=== PATIENT | male | born 1970 | race Caucasian/White ===

== ENCOUNTER 2023-06-27 07:30 | Observation (INO) ==
[2023-06-27 07:58] LABS: ABS Lymphocytes 0.9 10^3/uL (1.0-4.8); ABS Monocytes 1.4 10^3/uL (0.0-1.1); ABS Neutrophils 7.1 10^3/uL (1.5-7.6); Eosinophil % 0.5 %; Hematocrit 36.6 % (38-53); Lymphocyte % 9.8 %; Mean Corpuscular Hemoglobin 33.6 pg (27-33); Mean Corpuscular Hgb Conc 35.6 g/dL (31-36); Mean Corpuscular Volume 94.4 fL (80-97); Mean Platelet Volume 7.4 fL (7.5-11.2); Platelet Count 294 10^3/uL (150-450); Red Blood Count 3.88 10^6/uL (4.06-5.63); Red Cell Distribution Width 14.5 % (12-17); White Blood Count 9.4 10^3/uL (3.6-10.2)
[2023-06-27 08:03] LABS: INR 1.34 (0.83-1.13)
[2023-06-27 08:15] LABS: Albumin 3.2 g/dL (3.2-5.2); Calcium 7.9 mg/dL (8.6-10.3); Creatinine, Serum 0.64 mg/dL (0.67-1.17); Globulin 3.3 g/dL (2-4); Potassium 2.9 mmol/L (3.5-5.0); Total Bilirubin 0.6 mg/dL (0.2-1.0); Total Protein 6.5 g/dL (6.4-8.9); eGFR CKD-EPI 113.9 (>60)
[2023-06-27 09:51] LABS: High Sensitivity Troponin 1 Hr 13 pg/mL (<20)
[2023-06-27] MEDS ORDERED: Potassium Chlor 20 meq TAB.ER PO ONE (11:12)
[2023-06-27] MEDS ORDERED: Famotidine IV 10 MG/ML 2 ml VIAL (20 mg) IV SLOW PU ONE (12:04)
[2023-06-27] MEDS ORDERED: NS 0.9% 1000 ml BAG 1,000 ML IV ONE (12:04)
[2023-06-27 13:11] LABS: ALT 186 U/L (7-52); Albumin 3.2 g/dL (3.2-5.2); Alkaline Phosphatase 80 U/L (35-149); Blood Urea Nitrogen 8 mg/dL (6-24); CO2 Carbon Dioxide 24 mmol/L (22-32); Calcium 7.9 mg/dL (8.6-10.3); Chloride 92 mmol/L (101-111); Creatinine, Serum 0.66 mg/dL (0.67-1.17); Globulin 3.2 g/dL (2-4); Glucose 103 mg/dL (70-100); Sodium 122 mmol/L (135-145); Total Protein 6.4 g/dL (6.4-8.9); eGFR CKD-EPI 112.9 (>60)
[2023-06-27 14:06] LABS: Anion Gap 6 mmol/L (2-16)
[2023-06-27] MEDS ORDERED: Iohexol 350 (CONTRAST) 500 ML MDV IV ONE (16:53)
[2023-06-27] MEDS ORDERED: Thiamine 100 MG/ML 2 ml VIAL (200 mg) IM ONE (17:20)
[2023-06-27 18:01] LABS: INR 1.39 (0.83-1.13)
[2023-06-27 18:12] LABS: C Reactive Protein 160.96 mg/L (<8.01); Calcium 7.9 mg/dL (8.6-10.3); Creatinine, Serum 0.63 mg/dL (0.67-1.17); eGFR CKD-EPI 114.4 (>60)
[2023-06-27 18:13] LABS: Potassium Redraw 2.9 mmol/L (3.5-5.0)
[2023-06-27] MEDS ORDERED: Nicotine PATCH 21 MG/24 HR PATCH ONE (18:14)
[2023-06-27] MEDS: Pantoprazole VIAL 40 MG VIAL IV SCH (18:20)
[2023-06-27] MEDS: Multivitamins/Minerals TAB PO SCH (18:21)
[2023-06-27] MEDS: Enoxaparin 40 MG/0.4 ML SYR SUBCUT SCH (18:22)
[2023-06-27] MEDS: cefTRIAXone 1 gm/50 mL D5W 1 GM/50 ML BAG IV SCH (18:22)
[2023-06-27] MEDS ORDERED: Lactated Ringers 1000 ml BAG 1,000 ML IV ONE (19:02)
[2023-06-27] MEDS: Nicotine PATCH 14 MG/24 HR PATCH TRANSDERM SCH (19:14)
[2023-06-27] MEDS ORDERED: Nicotine PATCH 21 MG/24 HR PATCH TRANSDERM ONE (19:15)
[2023-06-27] MEDS: metroNIDAZOLE IV 500 MG/100ML 500 MG/100 ML BAG IVPB SCH (19:46)
[2023-06-27 20:25] LABS: Osmolality Serum 266 mOsm/kg (275-295)
[2023-06-27 23:07] LABS: Urine Osmo 381 mOsm/kg (150-1150)
[2023-06-27 23:09] LABS: Urine Creatinine Concentration 59.49 mg/dL (20.00-370.00)
[2023-06-27 23:59] LABS: Calcium 7.7 mg/dL (8.6-10.3); Creatinine, Serum 0.7 mg/dL (0.67-1.17); Potassium 3.1 mmol/L (3.5-5.0); eGFR CKD-EPI 110.9 (>60)
[2023-06-28] MEDS ORDERED: Potassium Chlor 20 meq TAB.ER PO ONE ×3 (02:22→14:43)
[2023-06-28] MEDS: metroNIDAZOLE IV 500 MG/100ML 500 MG/100 ML BAG IVPB SCH ×2 (02:29→10:00)
[2023-06-28 08:09] LABS: ABS Eosinophils 0.1 10^3/uL (0.0-0.5); ABS Lymphocytes 1.2 10^3/uL (1.0-4.8); ABS Monocytes 1.1 10^3/uL (0.0-1.1); ABS Neutrophils 4.6 10^3/uL (1.5-7.6); ABS Nucleated RBC 0.01 10^3/ul; Hematocrit 37.1 % (38-53); Hemoglobin 12.9 g/dL (13.2-16.3); Lymphocyte % 17.4 %; Mean Corpuscular Hemoglobin 32.8 pg (27-33); Mean Corpuscular Hgb Conc 34.7 g/dL (31-36); Mean Corpuscular Volume 94.7 fL (80-97); Mean Platelet Volume 7.1 fL (7.5-11.2); Nucleated Red Blood Cells % 0.1 /100 WBC (0.0-0.4); Platelet Count 354 10^3/uL (150-450); Red Blood Count 3.92 10^6/uL (4.06-5.63); Red Cell Distribution Width 14.6 % (12-17); White Blood Count 7.1 10^3/uL (3.6-10.2)
[2023-06-28 08:15] LABS: INR 1.26 (0.83-1.13)
[2023-06-28] MEDS: Multivitamins/Minerals TAB PO SCH (08:26)
[2023-06-28] MEDS: Pantoprazole VIAL 40 MG VIAL IV SCH (08:26)
[2023-06-28 08:32] LABS: Albumin 3.1 g/dL (3.2-5.2); Creatinine, Serum 0.58 mg/dL (0.67-1.17); Globulin 3.1 g/dL (2-4); Magnesium 2.1 mg/dL (1.9-2.7); Potassium 3.4 mmol/L (3.5-5.0); Total Bilirubin 0.5 mg/dL (0.2-1.0); Total Protein 6.2 g/dL (6.4-8.9); eGFR CKD-EPI 117.3 (>60)
[2023-06-28 09:24] LABS: Activated Partial Thrombo Time 32.5 seconds (26.0-38.0)
[2023-06-28] MEDS: Nicotine PATCH 14 MG/24 HR PATCH TRANSDERM SCH (09:26)
[2023-06-28 13:28] LABS: Hepatitis B Surface Antigen Nonreactive (Nonreactive)
[2023-06-28 13:33] LABS: Hepatitis A Ab IgM Negative (Negative)
[2023-06-28 13:34] LABS: Hepatitis B Core IgM Nonreactive (Nonreactive)
[2023-06-28 13:45] LABS: Hepatitis B Surface Ab Not Immune (Immune)
[2023-06-28 13:46] LABS: Hepatitis C Antibody Negative (Negative)
[2023-06-28 16:06] LABS: TSH Ultra Thyroid Stim Horm 3.19 mcIU/mL (0.34-5.60)
[2023-06-28] MEDS: cefTRIAXone 1 gm/50 mL D5W 1 GM/50 ML BAG IV SCH (16:45)
[2023-06-28] MEDS: Enoxaparin 40 MG/0.4 ML SYR SUBCUT SCH (16:45)
[2023-06-28 17:27] VITALS: BP 139/106
[2023-07-01 00:37] LABS: Calprotectin 67.2 mcg/g
== END 2023-06-28 17:27 | disposition home or self-care (01) ==
LOC: ED 07:30 → EDHOLD 07:30
PROVIDERS: ADMIT Internal Medicine; ATTEND Internal Medicine